=== PATIENT | male | born 1990 | race Caucasian/White ===

== ENCOUNTER 2018-09-10 17:49 | Emergency (ER) | payer OTHER ==
[2018-09-10 17:49] VITALS: BMI 23.6
--- NOTE | 2018-09-10 18:18 | C.PDOC ---
History Of Present Illness 28 yr old male w/ hx of cocaine use p/w request for detox from cocaine. NO CP or sob or abdominal pain or GI or complaints. No rash. Notes last use was 4d prior. He denies any fall or trauma. Denies any other issues other than detox request. No SI, HI, anxiety or depression. Time Seen by Provider: 09/10/18 18:17 Chief Complaint (Nursing): Substance Abuse Past Medical History Vital Signs: Last Vital Signs Temp 98.9 F 09/10/18 18:12 Pulse 87 09/10/18 18:12 Resp 16 09/10/18 18:12 BP 130/79 09/10/18 18:12 Pulse Ox 99 09/10/18 18:12 - Medical History PMH: Schizophrenia (PARANOID) Denies: Depression Family History: States: Unknown Family Hx - Social History Hx Alcohol Use: Yes Hx Substance Use: Yes - Immunization History Hx Tetanus Toxoid Vaccination: No Hx Influenza Vaccination: No Hx Pneumococcal Vaccination: No Review Of Systems Constitutional: Negative for: Fever, Chills, Weakness, Malaise Eyes: Negative for: Pain, Vision Change ENT: Negative for: Ear Pain, Ear Discharge, Nose Pain, Nose Congestion, Mouth Pain Cardiovascular: Negative for: Chest Pain, Palpitations, Orthopnea, Edema, Light Headedness Respiratory: Negative for: Cough, Shortness of Breath, Hemoptysis, SOB with Excertion, Pleuritic Pain Gastrointestinal: Negative for: Nausea, Vomiting, Abdominal Pain, Diarrhea Genitourinary: Negative for: Dysuria, Frequency, Hematuria, Penile Discharge, Sc rotal Pain Musculoskeletal: Negative for: Neck Pain, Shoulder Pain, Back Pain, Hand Pain Skin: Negative for: Rash, Lesions Neurological: Negative for: Weakness, Numbness, Change in Speech Psych: Negative for: Anxiety, Depression, Psychosis, Suicidal ideation, Withdrawal Physical Exam - Physical Exam Appears: Well, Non-toxic, No Acute Distress Skin: Normal Color, Warm, Dry, No Pale, No Rash, No Cyanotic, No Ecchymosis Head: Atraumatic, Normacephalic, No Tenderness Eye(s): bilateral: Normal Inspection, PERRL, EOMI Ear(s): Bilateral: Normal Nose: Normal, No Flaring, No Discharge Oral Mucosa: Moist Tongue: Normal Appearing Lips: Normal Appearing Teeth: Normal Dentition Gingiva: Normal Appearing Throat: Normal, No Erythema, No Exudate Neck: Normal, Normal ROM, Trachea Midline Chest: Symmetrical, No Deformity, No Tenderness Cardiovascular: Rhythm Regular Respiratory: Normal Breath Sounds, No Decreased Breath Sounds, No Accessory Muscle Use, No Rales, No Stridor, No Wheezing, No Plerual Rub Gastrointestinal/Abdominal: Normal Exam, Soft, No Tenderness, No Organomegaly, No Mass, No Distention, No Guarding Back: Normal Inspection, No CVA Tenderness, No Vertebral Tenderness Extremity: Normal ROM, Capillary Refill (normal) Extremity: Bilateral: Atraumatic Pulses: Left Dorsalis Pedis: Normal, Right Dorsalis Pedis: Normal Neurological/Psych: Oriented x3, Normal Speech, Normal Cognition, Normal Cranial Nerves, No Cerebellar Signs, Normal Motor, Normal Sensation Gait: Steady Other Neurological Findings: No Facial Palsy Extremity: Right: No Drift, Left: No Drift, Upper: No Drift, Lower: No Drift ED Course And Treatment O2 Sat by Pulse Oximetry: 99 Medical Decision Making Medical Decision Makin yr old male p/w request for detox. Notes he already has a detox appt set up for cocaine usage 09/15/18. He notes that he tried to get in earlier to get rid of his addiction sooner. No SI or HI or depression. No other complaints. No CP or SOB or any other complaints orders cancelled given no detox beds availabe for cocaine addiction and pt asking to leave. No indication for labs other than medical clear for admission, and given pt without medical complaints, no indication for labs at this time clear for d.c home- pt was given f/u instructions by crisis Disposition - Disposition Disposition Time: 19:06 Condition: GOOD Forms: [employer] (Gambian) - Clinical Impression Clinical Impression: Desire for detoxification
[2018-09-10 19:36] VITALS: BP 132/84; PULSE 82; RESP 14; TEMP 97.9; O2SAT 98
== END 2018-09-10 19:35 | disposition home or self-care (01) ==
LOC: C.ER 17:49
DX: F14.10 Cocaine abuse, uncomplicated (principal)